=== PATIENT | male | born 1970 | race African-American/Black ===

== ENCOUNTER → 2020-05-08 | Outpatient (CLI) | payer BC ==
[2020-05-08 12:51] LABS: HEMOGLOBIN 15.9 gm/dl (14.0-17.5); RED BLOOD COUNT 5.3 M/UL (4.20-5.50); WHITE BLOOD COUNT 4.4 K/UL (4.5-11.0)
[2020-05-08 13:27] LABS: BUN/CREATININE RATIO 13 (0-10)
== END ==
LOC: LAB 12:34
PROVIDERS: Internal Medicine Nephrology
DX: I15.9 Secondary hypertension, unspecified (principal)
CPT/HCPCS: 80053; 80061; 84439; 84443; 85025

== ENCOUNTER → 2020-12-17 | Outpatient (CLI) | payer BC ==
[2020-12-17 10:28] LABS: HEMOGLOBIN 16.1 gm/dl (14.0-17.5); RED BLOOD COUNT 5.24 M/UL (4.20-5.50); WHITE BLOOD COUNT 5.2 K/UL (4.5-11.0)
== END ==
LOC: LAB 09:48
PROVIDERS: Family Medicine
DX: Z12.5 Encounter for screening for malignant neoplasm of prostate (principal); I10 Essential (primary) hypertension
CPT/HCPCS: 36415; 80053; 80061; 81001; 83735; 84153; 84439; 84443; 85027; 87086

== ENCOUNTER → 2020-12-18 | Outpatient (CLI) | payer BC | LOC: LAB 09:27 | PROVIDERS: Family Medicine | DX: M54.5 Low back pain (principal); G89.29 Other chronic pain; R94.4 Abnormal results of kidney function studies; R97.20 Elevated prostate specific antigen [PSA]; M47.816 Spondylosis without myelopathy or radiculopathy, lumbar region | CPT/HCPCS: 36415; 72110; 80048; 84153 ==

== ENCOUNTER → 2020-12-25 | Outpatient (CLI) | payer BC | LOC: MRI 09:21 | DX: M54.5 Low back pain (principal); G89.29 Other chronic pain; R97.20 Elevated prostate specific antigen [PSA]; M51.36 Other intervertebral disc degeneration, lumbar region | CPT/HCPCS: 72148 ==

== ENCOUNTER → 2021-01-21 | Outpatient (CLI) | payer BC | LOC: LAB 09:49 | PROVIDERS: Family Medicine | DX: I10 Essential (primary) hypertension (principal); R94.4 Abnormal results of kidney function studies | CPT/HCPCS: 80048 ==

== ENCOUNTER → 2021-04-01 | Outpatient (CLI) | payer BC | LOC: NM 07:57 | DX: C61 Malignant neoplasm of prostate (principal) | CPT/HCPCS: 78306; A9503 ==

== ENCOUNTER → 2021-04-05 | Outpatient (CLI) | payer BC | LOC: CT 08:00 | DX: C61 Malignant neoplasm of prostate (principal); R91.8 Other nonspecific abnormal finding of lung field | CPT/HCPCS: 71260; Q9967 ==

== ENCOUNTER → 2021-04-08 | Outpatient (CLI) | payer BC ==
[2021-04-10 01:08] LABS: TESTOSTERONE, SERUM 43 ng/dL (264-916)
== END ==
LOC: LAB 08:10
PROVIDERS: Internal Medicine Hematology & Oncology
DX: C61 Malignant neoplasm of prostate (principal)
CPT/HCPCS: 36415; 84153; 84402; 84403

== ENCOUNTER → 2021-08-02 | Outpatient (CLI) | payer BC ==
[2021-08-02 11:29] LABS: BUN/CREATININE RATIO 19 (0-10)
== END ==
LOC: LAB 09:11
PROVIDERS: Family Medicine
DX: I10 Essential (primary) hypertension (principal); E78.5 Hyperlipidemia, unspecified
CPT/HCPCS: 36415; 80053; 80061; 82550; 84153; 84439; 84443